=== PATIENT | female | born 1950 | race Caucasian/White ===

== ENCOUNTER → 2016-09-26 | Outpatient (CLI) | payer OTHER, MEDICARE ==
[~2016-09-26] MED LIST: CALCTAB5 PO; CHOL1000 PO; LEVO75TA PO
[2016-09-26 13:01] VITALS: BP 124/68; PULSE 62; TEMP 36.9; O2SAT 95
--- NOTE | 2016-09-26 15:07 | Radiation Oncology Follow-Up ---
Radiation Oncology Follow-Up Date of Visit Sep 26, 2016. Radiation Completion Date 10/15/1993 Diagnosis (1) Breast cancer Status: Chronic Permanent Comment: DIAGNOSIS: Left breast, invasive ductal carcinoma, ER positive, [id number], stage IA TREATMENT: Lumpectomy followed by adjuvant radiation therapy (10/15/1993) followed by 5 years of Tamoxifen. Last Edited By: Mary Spaulding on Sep 26, 2016 14:58 Interim History Ms Montgomery is a 66-year-old female who presents with stage I left breast cancer status post lumpectomy and adjuvant radiation therapy which completed in 1993. The patient did complete 5 years of tamoxifen. She now presents for follow-up evaluation. Dr. Muñoz also evaluates her and does breast examinations. She is doing well overall. She continues to do her on routine breast examinations. She has no other complaints at this time. Allergies Uncoded Allergies: TERAMYCIN (Allergy, Unknown, 10/21/02) Home Medications Scheduled Calcium (Caltrate), 500 MG PO DAILY Cholecalciferol (Vitamin D3), 5,000 INTUNIT PO DAILY Levothyroxine Sodium (Synthroid), 75 MCG PO DAILY Review of Systems Gastrointestinal: Symptoms: WNL Oral: Symptoms: No Problems Other Oral Symptoms: at times patient has trouble swallowing and has to cough to get it to go dw Respiratory: Symptoms: WNL Respiratory Comments: coughing when having trouble swallowing Urinary: Symptoms: WNL Skin: Symptoms: No Problems Breast: Right Upper Arm Measurement: 27.1 Right Mid Arm Measurement: 20.8 Right Wrist Measurement: 14.3 Left Upper Arm Measurement: 26.8 Left Mid Arm Measurement: 19.5 Left Wrist Measurement: 14.2 Arm Dominence: Right Physical Exam Vital Signs Date Time Temp Pulse Resp B/P Pulse Ox O2 Delivery O2 Flow Rate FiO2 09/26/16 13:01 36.9 62 16 124/68 95 General Appearance: WD/WN, no apparent distress ENT: normal ENT inspection, hearing grossly normal Neck: supple, no adenopathy Respiratory/Chest: chest non-tender, lungs clear, normal breath sounds, no respiratory distress Breast: Left Breast: status post lumpectomy. No masses in breast or axilla. Some telangiectasias noted. Right breast: no masses in breast or axilla. Cardiovascular: regular rate, rhythm, no edema, no gallop, no JVD Neurologic/Psychiatric: alert, oriented x 3 Additional Studies BILATERAL DIGITAL SCREENING MAMMOGRAM 3D/2D WITH CAD: 04/29/2016 CLINICAL HISTORY: Routine screening. Personal history of left breast cancer. Comparison is made to exams dated: 04/24/2015 mammogram, 04/18/2014 mammogram, mammogram - [facility], 03/13/2009, 01/13/2008, and 2009 mammogram - [facility]. FINDINGS: Breast tomosynthesis in addition to full field digital CC and MLO views were obtained. The tissue of both breasts is heterogeneously dense, which may obscure small masses. Current study was also evaluated with a Computer Aided Detection (CAD) system. There are expected postsurgical changes within the left breast and axilla. There are stable circumscribed subcentimeter oval masses in the superior posterior left breast, unchanged mammographically dating back to at least 2012, most likely benign. There are coarsening groupings of benign-appearing calcifications within the right breast, most likely degenerating fibroadenomas. Other coarse popcorn calcifications are scattered bilaterally. No new suspicious mass, architectural distortion or cluster of microcalcifications is seen. IMPRESSION: ACR BI-RADS CATEGORY 2: BENIGN There is no mammographic evidence of malignancy. A 1 year screening mammogram is recommended. The patient will receive written notification of the results. Approximately 10% of breast cancers are not detected with mammography. A negative mammographic report should not delay biopsy if a clinically suggestive mass is present. Otilia Esqueda M.D. ay/:05/01/2016 11:52:15 Assessment & Plan Ms. Montgomery is a 66-year-old female with left breast cancer status post breast conserving therapy and radiation therapy completed in 1993. She is doing well without any evidence of recurrence. We are happy with her progress. At this point, she may continue to follow up with Dr. Muñoz alone. We recommend she has an annual breast exam and bilateral screening mammograms. She will have a routine annual mammogram ordered by her primary care physician. She was told to call us with any questions or concerns. We are happy to see her again in the future should she request it or if there is need for further radiation therapy. Total Time In Follow-Up I spent 20 minutes examining and counseling the patient. I spent 10 minutes completing this note. Copy To Daniel Muñoz M.D.
== END | disposition home or self-care (01) ==
LOC: C.ONC 12:44
PROVIDERS: ATTEND Radiology Radiation Oncology
DX: Z08 Encounter for follow-up examination after completed treatment for malignant neoplasm (principal); Z92.3 Personal history of irradiation; Z85.3 Personal history of malignant neoplasm of breast

== ENCOUNTER → 2016-11-14 | Outpatient (CLI) | payer OTHER, MEDICARE ==
--- NOTE | 2016-11-14 11:01 | DIAGNOSTIC IMAGING REPORT ---
TWO VIEW CHEST; LEFT-SIDED RIB SERIES CLINICAL HISTORY: Left chest wall pain. FINDINGS: PA and lateral chest radiographs are obtained. No prior studies are available for comparison at the time of dictation. The cardiomediastinal silhouette is unremarkable. Nonspecific interstitial thickening is noted. There is no airspace consolidation or pleural effusion. There is no pneumothorax. The skeletal structures are osteopenic. There is no radiographic evidence of left-sided rib fracture on the rib series. The remainder of the bony thorax appears intact. Mild degenerative change and scoliosis are seen throughout the thoracic spine. IMPRESSION: 1. No active disease in the chest. 2. There is no radiographic evidence of left-sided rib fracture on the rib series. Electronically signed by: Rasheed Martinez M.D. 11/14/2016 10:59 AM Dictated Date/Time: 11/14/2016 10:57 AM
== END | disposition home or self-care (01) ==
LOC: C.RAD 10:15
PROVIDERS: ATTEND Internal Medicine
DX: R07.89 Other chest pain (principal); C50.912 Malignant neoplasm of unspecified site of left female breast

== ENCOUNTER → 2017-01-20 | Outpatient (CLI) | payer OTHER, MEDICARE ==
[2017-01-20 12:59] LABS: HEMATOCRIT 41.2 % (37-47); MEAN CELL VOLUME 95.8 fL (80-100); MEAN CORPUSCULAR HEMOGLOBIN 32.6 pg (25-34); MEAN PLATELET VOLUME 10.3 fL (7.4-10.4); PLATELET COUNT 261 K/uL (130-400); WHITE BLOOD COUNT 4.77 K/uL (4.8-10.8)
[2017-01-20 13:50] LABS: THYROID STIMULATING HORMONE 0.722 uIu/ml (0.300-4.500)
[2017-01-20 14:24] LABS: ALT/SGPT 22 U/L (12-78); AST/SGOT 13 U/L (15-37); BLOOD UREA NITROGEN 11 mg/dl (7-18); BUN/CREATININE RATIO 13.8 (10-20); CALCIUM 9.2 mg/dl (8.5-10.1); CARBON DIOXIDE 27 mmol/L (21-32); CHLORIDE 108 mmol/L (98-107); CREATININE 0.82 mg/dl (0.60-1.20); GLUCOSE,FASTING 99 mg/dl (70-99); POTASSIUM 4.1 mmol/L (3.5-5.1); SODIUM 140 mmol/L (136-145)
[2017-01-20 14:33] LABS: ALB/GLOB RATIO 1.4 (0.9-2); ALKALINE PHOSPHATASE 80 U/L (45-117); CHOLESTEROL 202 mg/dl (0-200); CHOLESTEROL/HDL RATIO 3.4; HDL CHOLESTEROL 59 mg/dl; LDL CHOLESTEROL CALCULATED 123 mg/dl; TRIGLYCERIDES 98 mg/dl (0-150); VERY LOW DENSITY LIPOPROT CALC 20 mg/dl
== END | disposition home or self-care (01) ==
LOC: C.LABPBG 07:19
PROVIDERS: ATTEND Internal Medicine
DX: Z13.220 Encounter for screening for lipoid disorders (principal); E03.9 Hypothyroidism, unspecified; E55.9 Vitamin D deficiency, unspecified; M85.80 Other specified disorders of bone density and structure, unspecified site; Z85.3 Personal history of malignant neoplasm of breast

== ENCOUNTER → 2017-02-11 | Outpatient (CLI) | payer OTHER, MEDICARE | END | disposition home or self-care (01) | LOC: C.LABSPEC 08:03 → C.LABPBG 02-13 07:44 | PROVIDERS: ATTEND Internal Medicine | DX: Z12.11 Encounter for screening for malignant neoplasm of colon (principal); Z80.0 Family history of malignant neoplasm of digestive organs ==

== ENCOUNTER → 2017-05-02 | Outpatient (CLI) | payer OTHER, MEDICARE ==
--- NOTE | 2017-05-02 13:36 | MAMMOGRAPHY REPORT ---
BILATERAL DIGITAL SCREENING MAMMOGRAM TOMOSYNTHESIS WITH CAD: 05/02/2017 CLINICAL HISTORY: Routine screening. Patient has no complaints. TECHNIQUE: Breast tomosynthesis in addition to standard 2D mammography was performed. Current study was also evaluated with a Computer Aided Detection (CAD) system. COMPARISON: Comparison is made to exams dated: 04/29/2016 mammogram, 04/24/2015 mammogram, 04/18/2014 m ammogram, 04/12/2013 mammogram, 04/03/2012 mammogram, and 03/31/2012 mammogram - [facility]. BREAST COMPOSITION: The tissue of both breasts is heterogeneously dense, which may obscure small mas ses. FINDINGS: No suspicious masses, calcifications, or areas of architectural distortion are noted in ei ther breast. There has been no significant interval change compared to prior exams. There are stable postsurgical changes in the left breast. Bilateral benign-appearing calcifications are not signific antly changed. A linear scar marker denotes a scar on the left upper outer breast. IMPRESSION: ACR BI-RADS CATEGORY 2: BENIGN There is no mammographic evidence of malignancy. A 1 year screening mammogram is recommended. The pa tient will receive written notification of the results. Approximately 10% of breast cancers are not detected with mammography. A negative mammographic report should not delay biopsy if a clinically suggestive mass is present. Tatyana Gutierrez M.D. /:05/02/2017 07:36:38 Cnc Set Up Operator: Chantal REICH(Luis)(Bruna)(BD), [facility] letter sent: Normal 1/2 BI-RADS Code: ACR BI-RADS Category 2: Benign
== END | disposition home or self-care (01) ==
LOC: C.MAMM 07:09
PROVIDERS: ATTEND Internal Medicine
DX: Z12.31 Encounter for screening mammogram for malignant neoplasm of breast (principal); Z85.3 Personal history of malignant neoplasm of breast

== ENCOUNTER 2017-05-23 16:59 | Emergency (ER) | payer OTHER, MEDICARE ==
[~2017-05-23] VITALS: Ht 154.9 cm; Wt 63.2 kg
[2017-05-23 17:08] VITALS: TEMP 36.7; Ht 154.9 cm; Wt 63.2 kg
--- NOTE | 2017-05-23 17:50 | DIAGNOSTIC IMAGING REPORT ---
LEFT HAND MIN 3 VIEWS ROUTINE CLINICAL HISTORY: Left hand pain COMPARISON: None. DISCUSSION: No acute fractures are visualized. There are minor degenerative changes. There are no erosive or destructive changes. IMPRESSION: Mild degenerative change. No fractures identified. No evidence of erosive disease. Electronically signed by: Alban Segovia M.D. 05/23/2017 5:48 PM Dictated Date/Time: 05/23/2017 5:47 PM
--- NOTE | 2017-05-23 17:55 | EMERGENCY ROOM VISIT NOTE ---
History First contact with patient: 17:11 Chief Complaint: FINGER PAIN Stated Complaint: INJURED RING FINGER LEFT HAND History of Present Illness The patient is a 67 year old female who presents to the Emergency Room via private vehicle accompanied by female with complaints of "injured ring finger left hand". The patient states that today around 4:30 PM, she was at a friend' s house, descending a flight of steps off of the porch, when she attempted to do a little hop off of the last step and lost her balance, falling forward landing on her hands. She notes pain in her left fourth digit extending to the MCP joint of the third fourth and fifth digit. She notes that she has a ring on the left fourth digit but she is unable to remove this. She requests that it does not be cut. She denies any syncope. Review of Systems A complete 6-point Review of Systems was discussed with the patient, with pertinent positives and negatives listed in the History of Present Illness. All remaining Review of Systems questions can be considered negative unless otherwise specified. Past Medical/Surgical History Medical Problems: (1) Breast cancer Surgical Problems: (1) History of lumpectomy Family History Cancer Gallbladder disease Heart disease Hypertension Lung disease Seizures Social History Smoking Status: Former Smoker Alcohol Use: none Housing Status: lives alone Current/Historical Medications Scheduled Calcium (Caltrate), 500 MG PO DAILY Cholecalciferol (Vitamin D3), 5,000 INTUNIT PO DAILY Levothyroxine Sodium (Synthroid), 75 MCG PO DAILY Physical Exam Vital Signs Date Time Temp Pulse Resp B/P (MAP) Pulse Ox O2 Delivery O2 Flow Rate FiO2 05/23/17 18:34 70 20 160/85 99 Room Air 05/23/17 17:08 36.7 71 20 97 Room Air Physical Exam VITAL SIGNS - Vital signs and nursing notes were reviewed. Afebrile, hypertensive, stable. GENERAL -67-year-old female appearing her stated age who is in no acute distress. Communicates well with provider and answers questions appropriately. SKIN - Without rashes. No petechial rashes. There is slight edema noted to the PIP joint of the left fourth digit. HEAD - NC/AT. No browning signs or raccoons eyes. EYES - Sclera anicteric. No hyphema. EARS - No deformities of external structures noted on gross examination bilaterally. No pain elicited with palpation of the tragus bilaterally. External auditory canals without discharge or otorrhea. Tympanic membranes pearly solis without retraction or bulging. No fluid or purulent material visualized behind the TM. Handle of malleus, umbo, cone of light, pars tensa/ flaccid all easily visualized. NECK - Neck with FROM. No C-spine tenderness. EXTREMITIES - No clubbing or peripheral cyanosis. No pretibial edema present. Tenderness to palpation overlying the entire left digit as well as the surrounding MCP joints. Mild ecchymosis noted. No deformity noted. She is neurovascularly intact in this region with good capillary refill. Medical Decision & Procedures ER Provider Diagnostic Interpretation: LEFT HAND MIN 3 VIEWS ROUTINE CLINICAL HISTORY: Left hand pain COMPARISON: None. DISCUSSION: No acute fractures are visualized. There are minor degenerative changes. There are no erosive or destructive changes. IMPRESSION: Mild degenerative change. No fractures identified. No evidence of erosive disease. Electronically signed by: Alban Segovia M.D. 05/23/2017 5:48 PM Dictated Date/Time: 05/23/2017 5:47 PM Medical Decision Patient was seen and evaluated as above. She presents to us today with a mechanical fall and sustained injury to her left fourth digit. Examination does not reveal any obvious deformity. X-ray results as above. No acute fracture. I suspect she has sprained this digit, and will be fitted with a metal finger splint to help immobilize this region as well as the adjacent MCP joints. She is to follow-up with orthopedics, indicating that she actually has an appointment scheduled for this Friday with Dr. Matute. She is encouraged to keep that appointment. She is to return with worsening. She was found to have elevated blood pressure upon departure, and is to follow-up with her family doctor. She is to return with worsening. She was educated upon worrisome symptoms which to return, had questions answered prior to discharge, and was discharged home in good condition. She was also seen by the attending physician. In evaluation treatment this patient the following differential diagnoses were entertained: Fracture, dislocation, strain, sprain, among others. Impression Primary Impression: Fall Additional Impression: Pain in finger of left hand Departure Information Dispostion Home / Self-Care Condition GOOD Referrals No Doctor, Assigned (PCP) Fred Christopher D.O. Patient Instructions [facility] Additional Instructions You have been treated in the Emergency Department for finger and hand Pain. For pain control, you can use the following [id number] medicines: - Regular strength (325mg/tab) Tylenol (acetaminophen) 2 tabs every 4-6 hours as needed. Do not exceed 12 tablets in a 24 hour period. Avoid taking more than 3 grams (3000 mg) of Tylenol per day. This includes any other sources of acetaminophen you may take on a regular basis. If this is a recent injury (<24 hrs), ice can be applied to the area of pain for the first 3 days to help decrease pain and inflammation. You have been provided the number for an Orthopaedic Surgeon. You should call this number as soon as possible to establish a follow-up visit from today's Emergency Department visit. Keep the brace/splint in place until evaluated by Orthopedics. Return to the Emergency Department if your current symptoms worsen despite treatment course outlined above, or if you develop any of the following symptoms : intractable pain despite aforementioned treatment course or new onset of numbness or tingling of the fingers. Problem Qualifiers
[2017-05-23 18:34] VITALS: BP 160/85; PULSE 70; O2SAT 99
--- NOTE | 2017-05-24 00:08 | EMERGENCY ROOM VISIT NOTE ---
ED Visit Note First contact with patient: 17:11 The patient was seen and examined with Guillaume Cordova PA-c. I agree with the history, physical and findings. Please see the note for disposition and details.
== END 2017-05-23 18:42 | disposition home or self-care (01) ==
LOC: C.EDB 17:02 → C.EDD 18:42
DX: S63.615A Unspecified sprain of left ring finger, initial encounter (principal); W19.XXXA Unspecified fall, initial encounter; Y92.89 Other specified places as the place of occurrence of the external cause; Z85.3 Personal history of malignant neoplasm of breast; Z87.891 Personal history of nicotine dependence; Z80.9 Family history of malignant neoplasm, unspecified; Z82.49 Family history of ischemic heart disease and other diseases of the circulatory system; Z84.1 Family history of disorders of kidney and ureter; Z82.0 Family history of epilepsy and other diseases of the nervous system; Z79.899 Other long term (current) drug therapy

== ENCOUNTER → 2017-07-07 | Outpatient (CLI) | payer OTHER, MEDICARE ==
[2017-07-07 13:11] LABS: HEMATOCRIT 38.7 % (37-47); MEAN CELL VOLUME 95.3 fL (80-100); MEAN CORPUSCULAR HEMOGLOBIN 32.8 pg (25-34); MEAN CORPUSCULAR HGB CONC 34.4 g/dl (32-36); MEAN PLATELET VOLUME 9.8 fL (7.4-10.4); PLATELET COUNT 248 K/uL (130-400); RED BLOOD COUNT 4.06 M/uL (4.2-5.4)
--- NOTE | 2017-07-07 13:16 | DIAGNOSTIC IMAGING REPORT ---
ULTRASOUND ANKLE BRACHIAL INDEX ASSESSMENT CLINICAL HISTORY: Leg pain. COMPARISON STUDY: No priors. FINDINGS: Ankle-brachial indices were assessed under ultrasound. Right brachial pressure measures 133. Pressures in the right posterior tibial artery measure 124 for an HELEN of 0.93, and pressures in the right dorsalis pedis artery measure 108 for an HELEN of 0.81. Pressures in the left posterior tibial artery measure 139 for an HELEN of 1.05, and pressures in the left dorsalis pedis artery measure 134 for an HELEN of 1.01. IMPRESSION: Ankle-brachial indices as above. Dictated: 07/07/2017 1:09 PM Transcribed: 07/07/2017 1:16 PM ALLEN_Sara Electronically signed by: Rasheed Martinez M.D. 07/07/2017 1:21 PM Dictated Date/Time: 07/07/2017 1:09 PM
[2017-07-07 13:19] LABS: URINE APPEARANCE CLEAR (CLEAR); URINE BILIRUBIN NEG (NEG); URINE COLOR YELLOW; URINE EPITHELIAL CELL AUTO >30 /lpf (0-5); URINE NITRITE NEG (NEG); URINE PH 5.5 (4.5-7.5); URINE SPECIFIC GRAVITY 1.018 (1.000-1.030); UROBILINOGEN NEG (NEG)
[2017-07-07 13:20] LABS: MANUAL MICROSCOPIC REQUIRED? NO; REVIEW REQ? NO
[2017-07-07 13:45] LABS: ALT/SGPT 17 U/L (12-78); BLOOD UREA NITROGEN 11 mg/dl (7-18); BUN/CREATININE RATIO 13.8 (10-20); CALCIUM 9.3 mg/dl (8.5-10.1); CARBON DIOXIDE 26 mmol/L (21-32); CHLORIDE 107 mmol/L (98-107); CREATININE 0.82 mg/dl (0.60-1.20); GLUCOSE 95 mg/dl (70-99); MAGNESIUM 2.1 mg/dl (1.8-2.4); POTASSIUM 4.1 mmol/L (3.5-5.1); SODIUM 140 mmol/L (136-145)
[2017-07-07 13:48] LABS: ALB/GLOB RATIO 1.3 (0.9-2); ALKALINE PHOSPHATASE 82 U/L (45-117); AST/SGOT 11 U/L (15-37)
[2017-07-07 13:51] LABS: THYROID STIMULATING HORMONE 2.15 uIu/ml (0.300-4.500)
== END | disposition home or self-care (01) ==
LOC: C.ULTR 11:36
PROVIDERS: ATTEND Internal Medicine
DX: M79.661 Pain in right lower leg (principal); M79.662 Pain in left lower leg; E03.9 Hypothyroidism, unspecified; G47.62 Sleep related leg cramps; M85.80 Other specified disorders of bone density and structure, unspecified site; R42 Dizziness and giddiness; R53.83 Other fatigue

== ENCOUNTER → 2017-08-05 | Outpatient (CLI) | payer OTHER, MEDICARE | END | disposition home or self-care (01) | LOC: C.CPL 08:33 | PROVIDERS: ATTEND Orthopaedic Surgery | DX: M25.561 Pain in right knee (principal) ==

== ENCOUNTER → 2017-11-04 | Outpatient (CLI) | payer OTHER, MEDICARE ==
[2017-11-04 12:22] LABS: HEMATOCRIT 41.2 % (37-47); HEMOGLOBIN 14.3 g/dL (12.0-16.0); MEAN CELL VOLUME 95.6 fL (80-100); MEAN CORPUSCULAR HEMOGLOBIN 33.2 pg (25-34); MEAN CORPUSCULAR HGB CONC 34.7 g/dl (32-36); MEAN PLATELET VOLUME 10.1 fL (7.4-10.4); PLATELET COUNT 236 K/uL (130-400); RED CELL DISTRIBUTION WIDTH CV 12.9 % (11.5-14.5); RED CELL DISTRIBUTION WIDTH SD 44.6 fL (36.4-46.3); WHITE BLOOD COUNT 6.08 K/uL (4.8-10.8)
[2017-11-04 13:22] LABS: ALBUMIN 3.9 gm/dl (3.4-5.0); ALT/SGPT 15 U/L (12-78); AST/SGOT 10 U/L (15-37); BLOOD UREA NITROGEN 16 mg/dl (7-18); CALCIUM 9.2 mg/dl (8.5-10.1); CARBON DIOXIDE 26 mmol/L (21-32); CREATININE 0.89 mg/dl (0.60-1.20); GLUCOSE 79 mg/dl (70-99); POTASSIUM 4.1 mmol/L (3.5-5.1); SODIUM 137 mmol/L (136-145)
[2017-11-04 13:24] LABS: ALKALINE PHOSPHATASE 74 U/L (45-117)
== END | disposition home or self-care (01) ==
LOC: C.LABPBG 07:43
PROVIDERS: ATTEND Internal Medicine
DX: E03.9 Hypothyroidism, unspecified (principal); G47.62 Sleep related leg cramps; M85.80 Other specified disorders of bone density and structure, unspecified site; H57.11 Ocular pain, right eye; R42 Dizziness and giddiness; R51 Headache; R53.83 Other fatigue

== ENCOUNTER → 2018-04-20 | Outpatient (CLI) | payer OTHER, MEDICARE ==
[2018-04-23 13:39] LABS: FECAL OCCULT BLOOD #1 NEGATIVE (NEGATIVE); FECAL OCCULT BLOOD #2 NEGATIVE (NEGATIVE); FECAL OCCULT BLOOD #3 NEGATIVE (NEGATIVE)
== END | disposition home or self-care (01) ==
LOC: C.LABSPEC 08:07
PROVIDERS: ATTEND Internal Medicine
DX: Z12.11 Encounter for screening for malignant neoplasm of colon (principal); Z80.0 Family history of malignant neoplasm of digestive organs

== ENCOUNTER → 2018-04-23 | Outpatient (CLI) | payer OTHER, MEDICARE ==
[2018-04-23 13:54] LABS: ALBUMIN 3.8 gm/dl (3.4-5.0); ALKALINE PHOSPHATASE 82 U/L (45-117); ALT/SGPT 17 U/L (12-78); AST/SGOT 8 U/L (15-37); BLOOD UREA NITROGEN 10 mg/dl (7-18); CALCIUM 9.1 mg/dl (8.5-10.1); CARBON DIOXIDE 24 mmol/L (21-32); CREATININE 0.87 mg/dl (0.60-1.20); GLUCOSE 90 mg/dl (70-99); POTASSIUM 3.7 mmol/L (3.5-5.1); SODIUM 138 mmol/L (136-145)
== END | disposition home or self-care (01) ==
LOC: C.LABPBG 07:55
PROVIDERS: ATTEND Internal Medicine
DX: Z80.0 Family history of malignant neoplasm of digestive organs (principal); Z12.11 Encounter for screening for malignant neoplasm of colon; E03.9 Hypothyroidism, unspecified; M85.80 Other specified disorders of bone density and structure, unspecified site